=== PATIENT | female | born 1995 | race Caucasian/White ===

== ENCOUNTER 2021-11-03 13:11 | Day surgery (SDCO) | payer OTHER ==
[~2021-11-03] VITALS: Ht 160 cm; Wt 81.6 kg
[2021-11-03 14:16] LABS: BILIRUBIN NEGATIVE (NEGATIVE); BLOOD NEGATIVE Ery/uL (NEGATIVE); CLARITY CLEAR (CLEAR); COLOR YELLOW (YELLOW); GLUCOSE (U) NORMAL (NORMAL); LEUKOCYTES TRACE Leu/uL (NEGATIVE); NITRITE NEGATIVE (NEGATIVE); PROTEIN NEGATIVE (NEGATIVE); SPECIFIC GRAVITY 1.015 (1.001-1.030); UROBILINOGEN 0.2 mg/dL (0.2-1.0)
[2021-11-03 14:29] LABS: BACTERIA 1+
[2021-11-03 14:31] LABS: MARIJUANA (THC) NEGATIVE (NEGATIVE)
[2021-11-03 14:32] LABS: AMPHETAMINES NEGATIVE (NEGATIVE); BARBITURATES NEGATIVE (NEGATIVE); ECSTASY (MDMA) NEGATIVE (NEGATIVE); METHADONE NEGATIVE (NEGATIVE); OPIATES NEGATIVE (NEGATIVE); OXYCODONE NEGATIVE (NEGATIVE)
[2021-11-03 17:02] LABS: HCT 34.5 % (37.0-47.0); HGB 11.3 g/dl (12.5-16.0); MCH 26.5 pg (25.0-31.0); MCHC 32.8 g/dL (32.0-36.0); MPV 10.9 fL (6.0-9.5); RBC 4.26 M/uL (4.20-5.40); RDW 14.4 % (11.5-14.0); WBC 7.7 K/uL (4.0-10.5)
== END 2021-11-03 20:00 | disposition home or self-care (01) ==
LOC: FOB 13:11 → FOD 13:11 → FOB 16:37
PROVIDERS: ADMIT Obstetrics & Gynecology
DX: O47.1 False labor at or after 37 completed weeks of gestation (principal); O99.213 Obesity complicating pregnancy, third trimester; E66.9 Obesity, unspecified; Z3A.37 37 weeks gestation of pregnancy
CPT/HCPCS: 36415; 80305; 81001; 86850; 86900; 86901; G0378; J2540; J2765; J7120; Q0162

== ENCOUNTER 2021-11-09 10:46 | Inpatient (IN) | payer OTHER ==
[2021-11-09 12:17] LABS: HCT 38.7 % (37.0-47.0); HGB 12.7 g/dl (12.5-16.0); MCH 26.6 pg (25.0-31.0); MCHC 32.8 g/dL (32.0-36.0); MPV 10.8 fL (6.0-9.5); RBC 4.78 M/uL (4.20-5.40); RDW 14.5 % (11.5-14.0); WBC 7.7 K/uL (4.0-10.5)
[2021-11-09 12:57] LABS: BILIRUBIN NEGATIVE (NEGATIVE); BLOOD NEGATIVE Ery/uL (NEGATIVE); CLARITY CLEAR (CLEAR); COLOR YELLOW (YELLOW); GLUCOSE (U) NORMAL (NORMAL); LEUKOCYTES 1+ Leu/uL (NEGATIVE); NITRITE NEGATIVE (NEGATIVE); PROTEIN NEGATIVE (NEGATIVE); SPECIFIC GRAVITY 1.015 (1.001-1.030); UROBILINOGEN 0.2 mg/dL (0.2-1.0)
[2021-11-09 13:01] LABS: AMPHETAMINES NEGATIVE (NEGATIVE); BARBITURATES NEGATIVE (NEGATIVE); ECSTASY (MDMA) NEGATIVE (NEGATIVE); MARIJUANA (THC) NEGATIVE (NEGATIVE); METHADONE NEGATIVE (NEGATIVE); OPIATES NEGATIVE (NEGATIVE); OXYCODONE NEGATIVE (NEGATIVE)
[2021-11-09 13:22] LABS: BACTERIA 2+
[2021-11-10 16:56] LABS: HCT 38.1 % (37.0-47.0); HGB 12.3 g/dl (12.5-16.0); MCH 26.8 pg (25.0-31.0); MCHC 32.3 g/dL (32.0-36.0); RBC 4.59 M/uL (4.20-5.40); RDW 14.6 % (11.5-14.0); WBC 9.8 K/uL (4.0-10.5)
[2021-11-11] MEDS ORDERED: IBUPROFEN800 MG PO (09:26)
[2021-11-11] MEDS ORDERED: PRENATAL FORMU1 EACH PO (09:26)
== END 2021-11-11 20:19 | disposition home or self-care (01) | DRG 807 ==
LOC: FIS 10:46 → FOB 10:47 → FIS 12:02 → FOB 12:03
PROVIDERS: ADMIT Specialist
PROC: 3E0P7GC Introduction of Other Therapeutic Substance into Female Reproductive, Via Natural or Artificial Opening (ICD-10-PCS; 2021-11-09)
PROC: 10E0XZZ Delivery of Products of Conception, External Approach (ICD-10-PCS; principal; 2021-11-10)
PROC: 3E0234Z Introduction of Serum, Toxoid and Vaccine into Muscle, Percutaneous Approach (ICD-10-PCS; 2021-11-11)
DX: O41.03X0 Oligohydramnios, third trimester, not applicable or unspecified (principal); Z37.0 Single live birth; Z20.822 Contact with and (suspected) exposure to COVID-19; Z23 Encounter for immunization; O99.344 Other mental disorders complicating childbirth; Z3A.39 39 weeks gestation of pregnancy; F90.9 Attention-deficit hyperactivity disorder, unspecified type; O99.214 Obesity complicating childbirth; O99.824 Streptococcus B carrier state complicating childbirth
CPT/HCPCS: 36415; 80305; 81001; 84112; 86850; 86900; 86901; 90707; J2540; J7120; U0002